=== PATIENT | female | born 1995 | race African-American/Black ===

== ENCOUNTER 2018-01-28 13:38 | Emergency (ER) | payer OTHER ==
[2018-01-28 13:56] VITALS: BP 125/69; PULSE 57; RESP 16; TEMP 98.8; O2SAT 100
[2018-01-28 14:26] LABS: BILIRUBIN, URINE NEG (NEG); BLOOD, URINE SMALL (NEG); GLUCOSE,URINE NEG (NEG); KETONE, URINE NEG (NEG); NITRITE,URINE NEG (NEG); URINE COLOR LIGHT-YELLOW (YELLW/STRAW); URINE LEUKOCYTE ESTERASE NEG (NEG)
--- NOTE | 2018-01-28 15:31 | PD ---
HPI . Syncope Chief Complaint: Medical Clearance Time Seen by Provider: 14:54 Travel History International Travel<30 days: No Contact w/Intl Traveler<30days: No Traveled to known affect area: No History of Present Illness HPI This is a 22-year-old patient who presents following a syncopal episode which occurred yesterday. She did have a prodrome of dizziness, nausea and diaphoresis prior to the syncopal event. She states that she feels much better today. She reports some residual nausea. She is currently menstruating. Onset: Yesterday Timing: Brief episode of syncope followed by persistent nausea which is improving with time. Context: Currently menstruating. Modifying factors: None PFSH Past Medical History ?: Not LMP: now : 0 Para: 0 Miscarriage: 0 : 0 Social History Alcohol Use: Yes (on occasion) Tobacco Use: No Substance Use: Yes (MARIJUANA often) Allergies-Medications (Allergen,Severity, Reaction): Coded Allergies: No Known Allergies (Unverified , 12/30/15) Reported Meds & Prescriptions Reported Meds & Active Scripts Active No Active Prescriptions or Reported Medications Review of Systems Except as stated in HPI: all other systems reviewed are Neg Physical Exam Narrative GENERAL: Awake and alert and in no acute distress. SKIN: Warm and dry. Normal color and turgor. HEAD: Normocephalic/atraumatic. EYES: Pupils are equal. Extraocular movements are intact. ENT: Mucous membranes are pink. NECK: Normal range of motion. CARDIOVASCULAR: Regular rate and rhythm. RESPIRATORY: Nonlabored respirations. ABDOMEN: Abdomen is soft and nontender. MUSCULOSKELETAL: Atraumatic. NEUROLOGICAL: A and O 3. Cranial nerves are intact. Process Mechanic strengths are full and equal. Finger nose finger exam is intact. PSYCHIATRIC: Appropriate mood and affect. Data Data Last Documented VS Vital Signs Date Time Temp Pulse Resp B/P (MAP) Pulse Ox O2 Delivery O2 Flow Rate FiO2 01/28/18 14:44 18 18 01/28/18 13:56 98.8 125/69 (87) 100 Orders Orders Urinalysis - C+S If Indicated (01/28/18 13:59) Ed Urine Pregnancytest Poc (01/28/18 13:59) Orthostatic Vital Signs (01/28/18 14:57) Labs Laboratory Tests Test 01/28/18 14:05 Urine Color LIGHT-YELLOW Urine Turbidity CLEAR Urine pH 7.0 Urine Specific [place] 1.008 Urine Protein NEG mg/dL Urine Glucose (UA) NEG mg/dL Urine Ketones NEG mg/dL Urine Occult Blood SMALL Urine Nitrite NEG Urine Bilirubin NEG Urine Urobilinogen LESS THAN 2.0 MG/DL Urine Leukocyte Esterase NEG Urine RBC 1 /hpf Urine WBC 1 /hpf Microscopic Urinalysis Comment CULT NOT INDICATED MDM Medical Decision Making Medical Screen Exam Complete: Yes Emergency Medical Condition: Yes Differential Diagnosis My differential diagnosis of syncope includes but is not limited to cardiac arrhythmia, hypovolemia, anemia, neurological catastrophe, vasovagal response Narrative Course This is a young woman who presents following a syncopal event which occurred yesterday. It occurred in association with her menstrual cycle. Orthostatic vital signs are negative. This is a young woman who had a syncopal event yesterday. It sounds like a vasovagal event. She will be discharged home with reassurance. Diagnosis Primary Impression: Vasovagal syncope Patient Instructions: General Instructions, Syncope (ED) Scripts No Active Prescriptions or Reported Meds Disposition: 01 DISCHARGE HOME Condition: Stable Sheree Robbins MD Jan 28, 2018 15:31
[2018-01-28 15:41] VITALS: BP_SYST 104; BP_SYST 111; BP_SYST 121; BP_DIAS 56; BP_DIAS 65; BP_DIAS 78; RESP 18
== END 2018-01-28 15:42 | disposition home or self-care (01) ==
LOC: NEPD 13:38
DX: R55 Syncope and collapse (principal); F12.90 Cannabis use, unspecified, uncomplicated
CPT/HCPCS: 81001; 84703; 99283